=== PATIENT | male | born 1985 ===

== ENCOUNTER 2016-06-26 12:36 | Emergency (ER) | payer MEDICAID, OTHER ==
[2015-05-30 14:52] VITALS: BMI 27.2
--- NOTE | 2016-08-04 12:53 | CARD ---
APPROVED REPORT EKG Measurement Heart [id number] <Conclusion> Normal sinus rhythm with sinus arrhythmia Possible Left atrial enlargement Borderline ECG
== END 2016-06-26 14:28 | disposition home or self-care (01) ==
LOC: C.ER 12:36
DX: R07.89 Other chest pain (principal)
CPT/HCPCS: 96372; 99281; J1885

== ENCOUNTER 2016-07-08 22:37 | Emergency (ER) | payer MEDICAID ==
[2016-07-08 22:38] VITALS: BMI 27.2
[2016-07-08 22:49] VITALS: TEMP 98.2
[2016-07-08] MEDS ORDERED: Sodium Chloride 0.9% 1,000 ML IV ONE (23:32)
[2016-07-08] MEDS ORDERED: Sodium Chloride 0.9% 1,000 ML ONE (23:36)
[2016-07-08 23:47] LABS: BASO # 0.1 K/uL (0.0-0.2); BASO % 0.7 % (0.0-2.0); EOS # 0.1 K/uL (0.0-0.7); EOS % 0.7 % (0.0-4.0); HEMATOCRIT 43.1 % (35.0-51.0); LYMPH % 21.2 % (20.0-40.0); MEAN CELL VOLUME 86.2 fL (80.0-94.0); MEAN CORPUSCULAR HEMOGLOBIN 28.6 pg (27.0-31.0); MEAN CORPUSCULAR HGB CONC 33.2 g/dL (33.0-37.0); MEAN PLATELET VOLUME 9.2 fL (7.2-11.7); MONO # 0.8 K/uL (0.0-0.8); MONO % 7.9 % (0.0-10.0); RED CELL DISTRIBUTION WIDTH 14.2 % (11.5-14.5); WHITE BLOOD COUNT 9.6 K/uL (4.8-10.8)
[2016-07-08 23:52] LABS: RBC URINE < 1 /hpf (0-3); TRANSITIONAL EPITHIAL < 1 /hpf (0-3); URINE BACTERIA RARE (<OCC); URINE BILIRUBIN NEGATIVE (NEGATIVE); URINE BLOOD NEGATIVE (NEGATIVE); URINE COLOR Yellow (YELLOW); URINE GLUCOSE (UA) NORMAL (Normal); URINE KETONE NEGATIVE (NEGATIVE); URINE LEUKOCYTE ESTERASE NEG Leu/uL (Negative); URINE PROTEIN NEGATIVE (NEGATIVE); WBC URINE 2 /hpf (0-5)
[2016-07-08 23:55] LABS: CHLORIDE 101 mmol/L (98-107); SODIUM 139 mmol/L (132-148)
[2016-07-08 23:56] LABS: POTASSIUM 4.4 mmol/L (3.6-5.2)
[2016-07-08 23:58] LABS: ALB/GLOB RATIO 1.5 (1.0-2.1); ALKALINE PHOSPHATASE 68 U/L (38-126); ALT/SGPT 35 U/L (21-72); AST/SGOT 20 U/L (17-59); BILIRUBIN,TOTAL 0.7 mg/dL (0.2-1.3); BLOOD UREA NITROGEN 15 mg/dL (9-20); CALCIUM 8.3 mg/dl (8.6-10.4); CARBON DIOXIDE 27 mmol/L (22-30); GFR AFRICAN-AMERICAN > 60; GLUCOSE,RANDOM 63 mg/dL (75-110); TOTAL PROTEIN 7.2 g/dL (6.3-8.3)
[2016-07-09] MEDS ORDERED: Iohexol 350mg/ml 100 ML ONE (00:12)
--- NOTE | 2016-07-09 00:36 | C.PDOC ---
History Of Present Illness <Alec Al - Last Filed: 07/09/16 00:43> <Eb Mireles - Last Filed: 07/09/16 02:06> A 27 y/o male comes in c/o tugging pain/discomfort @ RLQ area of hernia defect which was repaired with a mesh 03/27. Was lifting some heavy furniture earlier today. Concerned the mesh was dislodged or hernia recurred. Pt denies fever, chills, vomiting, nausea, or any other complaints. (Alec Al) History Per: Patient History/Exam Limitations: no limitations Onset/Duration Of Symptoms: Hrs Current Symptoms Are (Timing): Still Present Severity: Mild Location Of Pain/Discomfort: RLQ Associated Symptoms: denies: Vomiting Recent travel outside of the [place] States: No Additional History Per: Patient <Alec Al - Last Filed: 07/09/16 00:43> <Eb Mireles - Last Filed: 07/09/16 02:06> Time Seen by Provider: 07/08/16 23:26 Chief Complaint (Nursing): Abdominal Pain Past Medical History Reviewed: Historical Data, Nursing Documentation, Vital Signs - Medical History PMH: Denies: Chronic Kidney Disease Surgical History: Appendectomy Family History: States: Unknown Family Hx - Social History Hx Alcohol Use: No Hx Substance Use: No <Alec Al - Last Filed: 07/09/16 00:43> Review Of Systems Except As Marked, All Systems Reviewed And Found Negative. Constitutional: Negative for: Fever, Chills Gastrointestinal: Positive for: Abdominal Pain (RLQ). Negative for: Nausea, Vomiting <Alec Al - Last Filed: 07/09/16 00:43> Physical Exam - Physical Exam Appears: Non-toxic, No Acute Distress Skin: Warm, Dry Head: Atraumatic, Normacephalic Eye(s): bilateral: Normal Inspection Neck: Supple Chest: Symmetrical Cardiovascular: Rhythm Regular Respiratory: Normal Breath Sounds, No Rales, No Rhonchi, No Wheezing Gastrointestinal/Abdominal: Soft, Tenderness (Mild RLQ tenderness at the surgical sight), No Guarding Neurological/Psych: Oriented x3, Normal Speech, Normal Cognition Gait: Steady <Alec Al - Last Filed: 07/09/16 00:43> ED Course And Treatment - Laboratory Results Result Diagrams: 07/08/16 23:44 07/08/16 23:44 O2 Sat by Pulse Oximetry: 100 (RA) Pulse Ox Interpretation: Normal <Alec Al - Last Filed: 07/09/16 00:43> - Laboratory Results Result Diagrams: 07/08/16 23:44 07/08/16 23:44 Pulse Ox Interpretation: Normal Reevaluation Time: 02:04 Reassessment Condition: Improved <Eb Mireles - Last Filed: 07/09/16 02:06> Medical Decision Making <Alec Al - Last Filed: 07/09/16 00:43> <Eb Mireles - Last Filed: 07/09/16 02:06> Medical Decision Making: Impression: 30 y/o male c/o RLQ pain/discomfort that began today Plans: CT Abd/Pel, Toradol, IV fluids, IV fluids (Alec Al) Upon provider reevaluation patient is feeling better, is medically stable, and requires no further treatment in the ED at this time. Patient will be discharged home . Counseling was provided and all questions were answered regarding diagnosis and need for follow up with the referred clinic. There is agreement to discharge plan. Return if symptoms persist or worsen. (Eb Mireles ) Disposition - Disposition Disposition Time: 01:00 <Alec Al - Last Filed: 07/09/16 00:43> Counseled Patient/Family Regarding: Studies Performed, Diagnosis, Need For Followup <Eb Mireles - Last Filed: 07/09/16 02:06> - Disposition Referrals: [facility] [Outside] [facility] [Outside] Condition: FAIR Instructions: Ventral Hernia (ED), Ventral Hernia Repair (GEN) Forms: Work Excuse - Clinical Impression Clinical Impression: Abdominal pain, Spigelian hernia - Scribe Statement The provider has reviewed the documentation as recorded by the Scribe <Alec Al - Last Filed: 07/09/16 00:43> <Eb Mireles - Last Filed: 07/09/16 02:06> - Scribe Statement Colt carlin All medical record entries made by the Scribe were at my direction and personally dictated by me. I have reviewed the chart and agree that the record accurately reflects my personal performance of the history, physical exam, medical decision making, and the department course for this patient. I have also personally directed, reviewed, and agree with the discharge instructions and disposition. (Alec Al) Physician Patient Turnover Patient Signed Over To: Eb Mireles Handoff Comments: f/u CT abd and dispo appropriately. <Alec Al - Last Filed: 07/09/16 00:43>
--- NOTE | 2016-07-09 01:40 | CT ---
EXAM: CT Abdomen and Pelvis With Intravenous Contrast CLINICAL HISTORY: 30 years old, male; Pain; Abdominal pain; Localized; Right lower quadrant (rlq); Prior surgery; Surgery date: 6+ months; Additional info: Rlq, heavy lifting, ? mesh moved/hernia TECHNIQUE: Axial computed tomography images of the abdomen and pelvis with intravenous contrast. This CT exam was performed using one or more of the following dose reduction techniques: automated exposure control, adjustment of the mA and/or kV according to patient size, and/or use of iterative reconstruction technique. Coronal and sagittal reformatted images were created and reviewed. CONTRAST: 100 mL of [id number] administered intravenously. EXAM DATE/TIME: 07/08/2016 11:33 PM COMPARISON: There are no prior studies for comparison. FINDINGS: Lower thorax: Heart size is normal. There is dependent atelectasis at the lung bases ABDOMEN: Liver: unremarkable Gallbladder and bile ducts: unremarkable Pancreas: Pancreas is mildly atrophic. Spleen: unremarkable Adrenals: unremarkable Kidneys and ureters: unremarkable Stomach and bowel: Stomach is partially distended. Rotation is normal. There is no obstruction. There is fecalization of the distal ileum.Appendix is not visualized.There is no pericecal inflammation.Colon is incompletely distended which limits evaluation.There is diverticulosis. Appendix: See stomach and bowel PELVIS: Bladder: Urinary bladder is partially distended. Reproductive: Seminal vesicles and prostate are unremarkable. ABDOMEN and PELVIS: Intraperitoneal space: There is no free air or free fluid. Bones/joints: There are no acute osseous abnormalities Soft tissues: There is a spigelian hernia. Hernia contains fat and a nonobstructed small bowel loop. There is a small fat-containing supraumbilical ventral hernia. There is no inflammation or edema in the fat in the ventral hernia . Vasculature: Vascular structures are unremarkable. Lymph nodes: There is shotty adenopathy. IMPRESSION: Right spigelian hernia containing fat and nonobstructed small bowel, mild inflammation in herniated fat suggest incarceration; uncomplicated fat containing supraumbilical ventral hernia; no acute solid visceral or bowel abnormality
[2016-07-09 02:40] VITALS: BP 127/75; PULSE 75; RESP 18; O2SAT 99
== END 2016-07-09 02:40 | disposition home or self-care (01) ==
LOC: C.ER 22:37
DX: K43.9 Ventral hernia without obstruction or gangrene (principal); R10.31 Right lower quadrant pain
CPT/HCPCS: 74177; 80053; 81001; 83690; 85025; 96361; 96374; 99284; J1885; J7040; Q9967

== ENCOUNTER 2016-09-04 10:53 | Emergency (ER) | payer MEDICAID ==
[2016-09-04 10:54] VITALS: BMI 27.2
[2016-09-04 11:01] VITALS: RESP 20
--- NOTE | 2016-09-04 11:26 | C.PDOC ---
History Of Present Illness 30 y/o male presents to emergency department with complaint of syncopal episode. Pt states he was walking to work this morning, passed out, unsure for how long, and hit his head. Denies any other complaints. Time Seen by Provider: 09/04/16 11:17 Chief Complaint (Nursing): Syncope History Per: Patient History/Exam Limitations: no limitations Onset/Duration Of Symptoms: Hrs Activity At Onset Of Symptoms: Walking Associated Symptoms Preceding Syncopal Episode: No Predromal Symptoms (Sudden Onset) Fall Associated With With Symptoms: Yes Recent travel outside of the [place]: No Past Medical History Reviewed: Historical Data, Nursing Documentation, Vital Signs Vital Signs: Last Vital Signs Temp 98.2 F 09/04/16 11:00 Pulse 57 L 09/04/16 11:00 Resp 20 09/04/16 11:00 BP 149/102 H 09/04/16 11:00 Pulse Ox 100 09/04/16 14:06 - Medical History PMH: No Chronic Diseases Surgical History: Appendectomy - [facility] Procedures SUPPLEMENT ABDOMINAL WALL WITH SYNTH SUB, PERC ENDO APPROACH (03/22/15) Family History: States: Unknown Family Hx - Social History Hx Alcohol Use: No Hx Substance Use: No Review Of Systems Except As Marked, All Systems Reviewed And Found Negative. Constitutional: Negative for: Fever, Chills Cardiovascular: Negative for: Chest Pain, Palpitations Respiratory: Negative for: Cough, Shortness of Breath, Wheezing Gastrointestinal: Negative for: Nausea, Vomiting, Abdominal Pain Skin: Negative for: Rash Neurological: Positive for: Other (+syncopal episode). Negative for: Headache, Dizziness Physical Exam - Physical Exam Appears: Non-toxic, No Acute Distress Skin: Normal Color, Warm, Dry Head: Normacephalic, No Abrasion, No Laceration Eye(s): bilateral: Normal Inspection, PERRL, EOMI Nose: Normal Oral Mucosa: Moist Neck: Normal ROM, No Midline Cervical Tenderness, No Paracervical Tenderness, Supple Chest: Symmetrical, No Tenderness Cardiovascular: Rhythm Regular, No Murmur Respiratory: Normal Breath Sounds, No Rales, No Rhonchi, No Wheezing Gastrointestinal/Abdominal: Soft, No Tenderness, No Guarding, No Rebound Back: Normal Inspection Extremity: Normal ROM, Capillary Refill (< 2 sec.) Extremity: Bilateral: Normal Color And Temperature Neurological/Psych: Oriented x3, Normal Speech, Normal Cognition, Normal Motor, Normal Sensation ED Course And Treatment - Laboratory Results Result Diagrams: 09/04/16 11:26 09/04/16 11:26 O2 Sat by Pulse Oximetry: 100 (RA) Pulse Ox Interpretation: Normal Medical Decision Making Medical Decision Making: syncope. r/o intracranil., metabolic, infectious etiology Plan: * CT HEAD, EKG, Labs, CxR * Reassess Progress Notes: ekg sinus jayme [address] t wave changes CXR IMPRESSION: No focal consolidation, significant pleural effusion, or definite pneumothorax identified. CT Head IMPRESSION: Normal CT of the Head. No acute intracranial findings identified. 200: pt reassesed : comfortable in nad. mild jayme cardia intiialy, pt young, athletic build. repeat hr 70s. case discussed with pmd. advises will pt tommorow in office. pt verbalizes feels well for d/c. Disposition - Disposition Referrals: Jimmy Simpson MD [Staff Provider] - Disposition: HOME/ ROUTINE Disposition Time: 14:05 Condition: STABLE Additional Instructions: please follow up with dr miller. he is expecting to se javed . return to er with worsenin g symptoms or concerns. Instructions: Syncope (ED) Forms: [facility] (Slovak) - Clinical Impression Clinical Impression: Syncope - Scribe Statement The provider has reviewed the documentation as recorded by the Scribhiral Smith All medical record entries made by the Shantellibhiral were at my direction and personally dictated by me. I have reviewed the chart and agree that the record accurately reflects my personal performance of the history, physical exam, medical decision making, and the department course for this patient. I have also personally directed, reviewed, and agree with the discharge instructions and disposition.
[2016-09-04 11:34] LABS: BASO # 0.1 K/uL (0.0-0.2); BASO % 0.7 % (0.0-2.0); EOS # 0.1 K/uL (0.0-0.7); EOS % 1.2 % (0.0-4.0); HEMATOCRIT 43.1 % (35.0-51.0); LYMPH # 1.5 K/uL (1.0-4.3); LYMPH % 19.7 % (20.0-40.0); MEAN CELL VOLUME 86.2 fL (80.0-94.0); MEAN CORPUSCULAR HEMOGLOBIN 28.2 pg (27.0-31.0); MEAN CORPUSCULAR HGB CONC 32.7 g/dL (33.0-37.0); MEAN PLATELET VOLUME 9.3 fL (7.2-11.7); MONO # 0.7 K/uL (0.0-0.8); MONO % 8.6 % (0.0-10.0); RED CELL DISTRIBUTION WIDTH 13.9 % (11.5-14.5); WHITE BLOOD COUNT 7.7 K/uL (4.8-10.8)
--- NOTE | 2016-09-04 11:40 | RAD ---
HISTORY: chest pain COMPARISON: None available. TECHNIQUE: Chest, one view. FINDINGS: Examination limited by habitus. LUNGS: No focal consolidation. Please note that chest x-ray has limited sensitivity for the detection of pulmonary masses. PLEURA: No significant pleural effusion identified. No definite pneumothorax . CARDIOVASCULAR: The cardiomediastinal silhouette appears within normal limits of size. OSSEOUS STRUCTURES: No acute osseous abnormality identified. VISUALIZED UPPER ABDOMEN: Unremarkable. OTHER FINDINGS: None. IMPRESSION: No focal consolidation, significant pleural effusion, or definite pneumothorax identified.
[2016-09-04 11:41] LABS: CHLORIDE 99 mmol/L (98-107); INR 1.1; POTASSIUM 4.1 mmol/L (3.6-5.2); SODIUM 141 mmol/L (132-148)
[2016-09-04 11:43] LABS: AST/SGOT 18 U/L (17-59); BILIRUBIN,TOTAL 0.6 mg/dL (0.2-1.3); CARBON DIOXIDE 28 mmol/L (22-30); GFR AFRICAN-AMERICAN > 60
[2016-09-04 11:44] LABS: ALB/GLOB RATIO 1.2 (1.0-2.1); ALKALINE PHOSPHATASE 79 U/L (38-126); ALT/SGPT 39 U/L (21-72); BLOOD UREA NITROGEN 6 mg/dL (9-20); CALCIUM 8.3 mg/dl (8.6-10.4); GLUCOSE,RANDOM 110 mg/dL (75-110); TOTAL PROTEIN 7.2 g/dL (6.3-8.3)
--- NOTE | 2016-09-04 12:21 | CT ---
PROCEDURE: CT HEAD WITHOUT CONTRAST. HISTORY: syncope/fall COMPARISON: None available. TECHNIQUE: Axial computed tomography images were obtained through the head/brain without intravenous contrast. Radiation dose: Total exam DLP = 982 mGy-cm. This CT exam was performed using one or more of the following dose reduction techniques: Automated exposure control, adjustment of the mA and/or kV according to patient size, and/or use of iterative reconstruction technique. FINDINGS: HEMORRHAGE: No intracranial hemorrhage. BRAIN: No mass effect or edema. Normal brain densities appreciated in the ann and white matter structures above or below the tentorium including throughout the brainstem. No suspicious extra-axial collection. VENTRICLES: Unremarkable. No hydrocephalus. CALVARIUM: Unremarkable. No fracture identified including through the skullbase. PARANASAL SINUSES: Unremarkable as visualized. No significant inflammatory changes. MASTOID AIR CELLS: Unremarkable as visualized. No inflammatory changes. OTHER FINDINGS: None. IMPRESSION: Normal CT of the Head. No acute intracranial findings identified.
[2016-09-04 14:32] VITALS: BP 126/72; PULSE 69; TEMP 97.8; O2SAT 99
--- NOTE | 2016-09-15 09:28 | CARD ---
APPROVED REPORT EKG Measurement Heart [id number] <Conclusion> Sinus bradycardia Otherwise normal ECG
== END 2016-09-04 14:38 | disposition home or self-care (01) ==
LOC: C.ER 10:53
DX: R55 Syncope and collapse (principal)